=== PATIENT | male | born 1940 | race Caucasian/White ===

== ENCOUNTER → 2019-04-18 | Outpatient (CLI) | payer OTHER ==
[~2019-04-18] VITALS: Ht 175.3 cm; Wt 81.7 kg
[~2019-04-18] MED LIST: ANTACID200 MG PO; ELIQUIS5 MG PO; METFORMIN HCL500 M3 PO; OMEPRAZOLE 20 M20 M1 PO; TOPROL XL50 MG PO; VITAMIN D-32000 UNIT PO; ZESTRIL40 MG PO; ZOCOR40 MG PO
--- NOTE | 2019-04-19 16:06 | PATH ---
[facility] [place] [address] PATHOLOGY RPT PROCEDURE Name: HEBERT VELEZ Room #: REG CL Adriana.#: [id number] Admission: 04/18/19 Date of : 38 Discharge: Report #: [id number] Path Case #: [id number] [facility] Accession Number: [id number] . 01 Material submitted: . PART A: stomach - BIOPSY OF GASTRITIS TO R/O H. PYLORI PART B: esophagus - BIOPSY OF DISTAL ESOPHAGUS; HX OF BARRETTS. Modifiers: distal PART C: colon - POLYP AT TRANSVERSE COLON. Modifiers: transverse PART D: colon - POLYP AT DESCENDING COLON. Modifiers: descending . 01 Clinical history: . Magana's esophagus, hiatal hernia, gastritis, Hx of polyps, colon polyps . 02 Diagnosis: A. Gastric mucosa, gastritis rule out H. pylori, endoscopic biopsy: - Moderate reactive gastropathy. - Negative for intestinal metaplasia or atrophy. - Negative for Helicobacter pylori (properly controlled immunohistochemical stain performed). . B. 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 - Negative for dysplasia. - Focal squamous mucosa present showing mild esophagitis. . C. Polyp, transverse colon, endoscopic biopsy: - Tubular adenoma. - Negative for high-grade dysplasia. . D. Polyp, at descending colon, endoscopic biopsy: - Tubular adenoma. - Negative for high-grade dysplasia. . 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 02 Comment: The above diagnosis of Magana's esophagus is made due to presence of intestinal metaplasia and with the assumption that the biopsies were obtained from the columnar mucosa in the distal esophagus located at least 1 cm proximal to the top of the gastric folds as per the 2016 ACG guidelines. 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 [address] [place] [address] PATHOLOGY RPT PROCEDURE Name: HEBERT VELEZ Room #: REG CL Adriana.#: [id number] Admission: 04/18/19 Date of : 38 Discharge: Report #: [id number] Path Case #: [id number] Electronically signed: . Mariaelena Jenkins MD, Pathologist NPI- [id number] . 01 Gross description: . A. Received in formalin labeled "Hueser, Hebert, BX of gastritis," is a single segment of naqvi soft tissue measuring 0.5 cm in maximum dimension. The specimen is entirely submitted in cassette A1. . B. Received in formalin labeled " Hebert Velez BX of distal esophagus," are 3 segments of naqvi soft tissue measuring 0.8 x 0.5 x 0.2 cm in aggregate dimensions and ranging from 0.2 to 0.3 cm in maximum dimension. The specimen is submitted entirely in cassette B1. . C. Received in formalin labeled " Hebert Velez, polyp at transverse colon," are multiple segments of naqvi soft tissue measuring 1.5 x 0.3 x 0.1 cm in aggregate dimensions. The specimen is filtered and entirely submitted in cassette C1. . D. Received in formalin labeled " Hebert Velez, polyp at descending colon," are multiple segments of naqvi soft tissue measuring 1.8 x 1.0 x 0.3 cm in aggregate dimensions. The specimen is filtered and entirely submitted in cassette D1. (TSD; 04/18/2019) TOB/TOB 04/18/2019 1739 Local . 02 Pathologist provided ICD-10: K31.9, K22.70, K20.9, D12.3, D12.4 . 02 CPT . 681499, 435717, 336311, 096898, [id number] Specimen Comment: A courtesy copy of this report has been sent to [phone], [phone] Specimen Comment: [phone] Specimen Comment: Report sent to / DR SINGER Performed at: [address] [facility], [place], [place] [id number] MD Fadi Cohen MD Phone: [phone] Performed at: [address] [id number] MD Mariaelena Jenkins MD Phone: [phone]
--- NOTE | 2019-04-23 09:17 | P ---
[facility] [place] [address] [place] [address] PROCEDURE REPORT Name: HEBERT RAO Room #: REG Michael Sewell#: [id number] Admission: 04/18/19 Attend Phys: Meng Aldrich Discharge: Date of : 38 Report #: [id number] THIS REPORT FOR: //name// CC: Meng Roberto MD DATE OF SERVICE: 04/18/2019 PROCEDURE PERFORMED: Colonoscopy with polypectomies. HISTORY OF PRESENT ILLNESS: The patient is a 78-year-old male who has undergone colonoscopies in the past by different gastroenterologists. Reportedly, last one was approximately 3 years ago. He had a history of polyps. He denies any symptoms. No family history of colon cancer. He has a history of atrial fibrillation, has been on Eliquis, but this has been held for the last several days. The risks and benefits of the procedure were explained to the patient, those risks including but not limited to bleeding, perforation and the risk of sedation. He understood these risks and gave informed consent. Sedation was given using propofol per anesthesia. Next, a digital rectal exam was initially performed, which was normal. Next, using a standard Olympus colonoscope, the scope was placed in the patient's anus and advanced under direct vision to the cecum. The overall prep was good. The cecum and ileocecal valve were normal in appearance. Ascending colon was normal. In the transverse colon, a 5 mm sessile polyp was noted. This was removed with cold forceps, otherwise, normal. In the descending colon, 2 polyps were noted, the first one was 8 mm, the second one 1 cm, both removed and sessile, both removed by snare cautery. Multiple diverticula were noted in the sigmoid colon, no evidence of inflammation, otherwise normal. The rectal mucosa was normal. On retroflexion, small nonbleeding internal hemorrhoids were noted. The scope was then withdrawn and the procedure terminated. The patient tolerated the procedure well. IMPRESSION: 1. Small colonic polyps. 2. Sigmoid diverticulosis. 3. Internal hemorrhoids. 4. Otherwise, normal colonoscopy. RECOMMENDATIONS: 1. Await biopsy results. 2. Consider repeat colonoscopy in [address] [address] PROCEDURE REPORT Name: JALENHEBERT DUDLEY Room #: REG [facility]#: [id number] Admission: 04/18/19 Attend Phys: Meng Aldrich Discharge: Date of : 38 Report #: [id number] Thank you for allowing me to participate in his care. <ELECTRONICALLY SIGNED> By: Meng Bustamante MD 04/23/19 0917 0927 1448 Meng Bustamante MD /nt
--- NOTE | 2019-04-23 09:17 | P ---
[facility] [place] [address] [address] [place] [address] PROCEDURE REPORT Name: HEBERT RAO Room #: REG LOREN Sewell#: [id number] Admission: 04/18/19 Attend Phys: Meng Aldrich Discharge: Date of : 38 Report #: [id number] THIS REPORT FOR: //name// CC: Meng Roberto DATE OF SERVICE: 04/18/2019 PROCEDURE PERFORMED: Upper endoscopy with biopsies. HISTORY OF PRESENT ILLNESS: The patient is a 78-year-old male with a history of gastroesophageal reflux disease and Magana esophagus. He had been on Protonix in the past, recently switched to Prilosec. States Protonix seems to work better. He did report some mild indigestion recently. He denies any dysphagia. Last upper endoscopy with biopsies was reportedly 3 years ago. I do not have a copy of these results. This was done by a different index clerk. The patient today presents for EGD and colonoscopy. DESCRIPTION OF PROCEDURE: The risks and benefits of the procedure were explained to the patient, those risks including but not limited to bleeding, perforation and the risk of sedation. He understood these risks and gave informed consent. Sedation was given using propofol per anesthesia. Next, using a standard Olympus upper endoscope, the scope was placed in the patient's mouth and advanced under direct vision through the esophagus, stomach and into the second portion of the duodenum. The larynx was normal in appearance. The upper and mid esophagus was normal. In the distal esophagus, 2 small pink mucosal tongues were noted likely consistent with Magana's. Biopsies were obtained. They were approximately 1 cm in length. No evidence of esophagitis. Upon entering the stomach, a small hiatal hernia was noted. Overall, the gastric mucosa was normal in the body other than a few small polyps, which appeared to be fundic gland type polyps. In the gastric antrum, near the pylorus, a mild gastritis was noted. Biopsies were obtained to rule out H. pylori. The duodenal bulb, first and second portion were all normal. The scope was then withdrawn and the procedure terminated. The patient tolerated the procedure well. IMPRESSION: 1. Short segment Magana's esophagus. 2. Small hiatal hernia. 3. Gastric polyps. 4. Gastritis. 5. Otherwise, normal upper endoscopy. RECOMMENDATIONS: 1. Await biopsy results. 2. Would recommend continuing Protonix 40 mg q. day. [address] [address] PROCEDURE REPORT Name: HEBERT RAO Room #: REG LOREN Sewell#: [id number] Admission: 04/18/19 Attend Phys: Meng Aldrich Discharge: Date of : 38 Report #: [id number] Thank you for allowing me to participate in his care. <ELECTRONICALLY SIGNED> By: Meng Bustamante MD 04/23/19 0917 0838 1427 Meng Bustamante MD /jael
== END | disposition home or self-care (01) ==
LOC: GI 07:14
DX: Z12.11 Encounter for screening for malignant neoplasm of colon (principal); Z86.010 Personal history of colon polyps; D12.3 Benign neoplasm of transverse colon; D12.4 Benign neoplasm of descending colon; K57.30 Diverticulosis of large intestine without perforation or abscess without bleeding; K64.8 Other hemorrhoids; K31.9 Disease of stomach and duodenum, unspecified; K22.70 Barrett's esophagus without dysplasia; K31.7 Polyp of stomach and duodenum; K44.9 Diaphragmatic hernia without obstruction or gangrene; I48.91 Unspecified atrial fibrillation; K21.9 Gastro-esophageal reflux disease without esophagitis; I10 Essential (primary) hypertension; E11.9 Type 2 diabetes mellitus without complications; E78.5 Hyperlipidemia, unspecified; Z98.890 Other specified postprocedural states; Z87.891 Personal history of nicotine dependence; Z79.01 Long term (current) use of anticoagulants; Z79.899 Other long term (current) drug therapy
CPT/HCPCS: 62110; 62900